=== PATIENT | female | born 1970 | race African-American/Black ===

== ENCOUNTER 2019-06-13 09:10 | Emergency (ER) | payer BC ==
[2019-06-13 09:38] LABS: Bilirubin Negative (Negative); Blood, Urine Negative (Negative); Clarity Clear (Clear); Glucose, Urine (Dipstick) Greater than 1000 mg/dL (Negative); Leukocyte Negative Leu/uL (Negative); Nitrite Negative (Negative); Protein, Urine (Dipstick) Negative (Neg-Trace); Urobilinogen Normal mg/dL (Less than 2)
--- NOTE | 2019-06-13 10:22 | RAD ---
TWO VIEWS OF THE CHEST: COMPARISON: None. HISTORY: Right flank pain and chest pain. FINDINGS: Two views of the chest show normal sized cardiomediastinal silhouette. There is no evidence of consol idation, mass, or pleural effusion. Degenerative changes are seen in the spine. IMPRESSION: No evidence of acute cardiopulmonary disease. POS: [facility]
[2019-06-13] MEDS ORDERED: Ketorolac Tromethamine 30 MG/ML VIAL ONE (10:48)
[2019-06-13] MEDS ORDERED: Ondansetron ODT 4 MG TAB ONE (10:51)
== END 2019-06-13 11:25 | disposition home or self-care (01) ==
LOC: ERS 09:10
DX: R07.81 Pleurodynia (principal); E11.9 Type 2 diabetes mellitus without complications; I10 Essential (primary) hypertension; Z79.84 Long term (current) use of oral hypoglycemic drugs; Z79.899 Other long term (current) drug therapy
CPT/HCPCS: 71046; 81003; 93005; 96372; J1885; Q0162